=== PATIENT | male | born 1995 | race Two or more races ===

== ENCOUNTER 2024-05-27 00:07 | Emergency (ER) | payer OTHER ==
[~2024-05-27] VITALS: Ht 177.8 cm; Wt 83.9 kg
[2024-05-27] MEDS ORDERED: PROMETHAZINE HCL 50 MG/ML AMPUL IM STA (03:10)
[2024-05-27] MEDS ORDERED: HYOSCYAMINE SULFATE 0.125 MG TAB.SUBL SL STA (03:10)
[2024-05-27] MEDS ORDERED: LACTOBACILLUS ACIDOPHILUS 1 CAP CAP PO STA (03:11)
[2024-05-27] MEDS ORDERED: FAMOTIDINE/PF 20 MG/2 ML VIAL IV PUSH STA (03:11)
[2024-05-27] MEDS ORDERED: 0.9 % SODIUM CHLORIDE 1,000 ML IV ONE (03:15)
[2024-05-27] MEDS ORDERED: HYOSCYAMINE SULFATE 0.125 MG TAB.SUBL ONE (03:26)
[2024-05-27] MEDS ORDERED: PROMETHAZINE HCL 50 MG/ML AMPUL IM ONE (03:27)
[2024-05-27] MEDS ORDERED: FAMOTIDINE/PF 20 MG/2 ML VIAL ONE (03:27)
[2024-05-27] MEDS ORDERED: LACTOBACILLUS ACIDOPHILUS 1 CAP CAP PO ONE (03:27)
[2024-05-27 04:12] LABS: HEMATOCRIT 50.5 % (39.0-48.0); HEMOGLOBIN 17.5 g/dL (13-16.00); MEAN CELL VOLUME 80.9 fL (80.0-100.00); MEAN CORPUSCULAR HEMOGLOBIN 28.1 pg (27.00-32.0); MEAN CORPUSCULAR HGB CONC 34.7 g/dl (32.0-36.0); PLATELET COUNT 173 K/uL (150-450); RED BLOOD COUNT 6.24 M/uL (4.00-6.00); RED CELL DISTRIBUTION WIDTH 13.3 % (11.5-14.5)
[2024-05-27 04:30] LABS: CALCIUM 9.6 mg/dL (8.5-10.1); CREATININE SERUM 1.18 mg/dL (0.70-1.30); GFR 74.62; POTASSIUM 4.29 mEq/L (3.5-5.1)
[2024-05-27 06:16] LABS: URINE APPEARANCE Clear; URINE BILIRRUBIN Negative (NEGATIVE); URINE BLOOD Negative; URINE COLOR Dark Yellow; URINE GLUCOSE Negative (NEGATIVE); URINE LEUKOCYTE Negative; URINE NITRATE Negative; URINE PROTEIN 30 (NEGATIVE); URINE UROBILINOGEN 0.2 E.U./dl
[2024-05-27 06:21] LABS: URINE BACTERIA 18.3 uL (0.0-1933); URINE EPITHELIAL CELLS 4.9 uL (0.0-38.8); URINE RBC 41.9 uL (0.0-20.8)
[2024-05-27 06:57] LABS: URINE CAST 0.88 uL (0.0-1.40); URINE KETONE 40 (NEGATIVE)
[2024-05-27] MEDS ORDERED: METRONIDAZOLE/SODIUM CHLORIDE 500 MG/100 ML PIGGYBACK IV ONE ×2 (09:30→09:33)
[2024-05-27] MEDS ORDERED: CIPROFLOXACIN IN 5 % DEXTROSE 400 MG/200 ML PIGGYBAG IV ONE ×2 (09:30→09:33)
== END 2024-05-27 14:12 | disposition home or self-care (01) ==
LOC: ER 00:10
PROVIDERS: General Practice
DX: R11.10 Vomiting, unspecified (principal); R19.7 Diarrhea, unspecified